=== PATIENT | female | born 1995 | race Caucasian/White ===

== ENCOUNTER 2019-03-06 18:09 | Emergency (ER) | payer BC ==
[~2019-03-06] VITALS: Ht 160 cm; Wt 56.7 kg
[2019-03-06 18:27] VITALS: BP 110/70
[2019-03-06] MEDS: ACETAMINOPHEN EXTRA STRENGTH 500 MG TAB PO ONE (20:58)
[2019-03-06 21:30] VITALS: BP 120/91
== END 2019-03-06 21:24 | disposition home or self-care (01) ==
LOC: MED 18:09
DX: S09.90XA Unspecified injury of head, initial encounter (principal); R11.0 Nausea; G43.909 Migraine, unspecified, not intractable, without status migrainosus; W22.8XXA Striking against or struck by other objects, initial encounter; Y93.89 Activity, other specified; Y92.89 Other specified places as the place of occurrence of the external cause; Y99.8 Other external cause status
CPT/HCPCS: 70450; 99284